=== PATIENT | female | born 1990 | race Caucasian/White ===

== ENCOUNTER 2023-09-07 14:03 | Outpatient (CLI) | payer OTHER, SELFPAY | END 2023-09-07 14:04 | disposition home or self-care (01) | LOC: NFLDREF 09-13 12:17 | PROVIDERS: PCP Nurse Practitioner Family; Referring Provider Nurse Practitioner Family; Visit Provider Nurse Practitioner Family | DX: R30.0 Dysuria (principal); R82.90 Unspecified abnormal findings in urine | CPT/HCPCS: 87086 ==